=== PATIENT | male | born 1970 | race Caucasian/White ===

== ENCOUNTER 2020-03-01 08:48 | Outpatient (CLI) | payer BC, SELFPAY ==
--- NOTE | ~2020-03-01 | XR_ITS ---
XR shoulder RT min 2V DATE: 03/01/2020 09:06 INDICATION: Impingement syndrome. Shoulder pain. TECHNIQUE: 4 views COMPARISON: None FINDINGS: No fracture or dislocation, periosteal reaction or bone destruction or abnormal soft tissue calcification. Degenerative spurring of the thoracic spine is noted. IMPRESSION: No significant abnormality of the right shoulder Degenerative spurring of the thoracic spine Reviewed, dictated and finalized at location B.
--- NOTE | ~2020-03-01 | XR_ITS ---
XR shoulder LT min 2V DATE: 03/01/2020 09:06 INDICATION: Shoulder pain. Impingement syndrome. TECHNIQUE: 4 views COMPARISON: None FINDINGS: There is joint space narrowing and mild spurring of the left acromioclavicular joint. No fracture, dislocation, periosteal reaction or bone destruction. No abnormal soft tissue calcificat ion of the left shoulder. Degenerative spurring of the thoracic spine. IMPRESSION: Degenerative change at the left acromioclavicular joint Reviewed, dictated and finalized at location B.
== END 2020-03-01 08:49 | disposition home or self-care (01) ==
LOC: ANHIMG 08:53
PROVIDERS: PCP Family Medicine; Visit Provider Family Medicine
DX: M75.40 Impingement syndrome of unspecified shoulder (principal); M46.04 Spinal enthesopathy, thoracic region
CPT/HCPCS: 73030

== ENCOUNTER 2020-06-21 10:03 | Outpatient (CLI) | payer BC, SELFPAY ==
--- NOTE | 2020-06-21 11:00 | NEURO_ITS ---
Patient Number: [id number] Impression: # Complains of pain and numbness of upper extremities. # Bilateral ulnar neuropathy across the elbows, right more than left. # Evolving right Carpal Tunnel Syndrome. # Needle/EMG exam mildly neurogenic. # Clinical correlation recommended Nerve Conduction Studies Anti Sensory Summary Table Stim Site NR Peak (ms) P-T Amp (?V) Site1 Site2 Delta-P (ms) Dist (cm) Luis Antonio (m/s) Left Median Anti Sensory (2-3nd Digit) Wrist 3.3 42.4 Wrist 2-3nd Digit 3.3 14.0 42 Wrist 3.4 33.5 Wrist 2-3nd Digit 3.3 14.0 42 Right Median Anti Sensory (2-3nd Digit) Wrist 3.5 22.8 Wrist 2-3nd Digit 3.5 14.0 40 Wrist 3.4 20.4 Wrist 2-3nd Digit 3.5 14.0 40 Left Radial Anti Sensory (Base 1st Digit) Wrist 2.2 21.9 Wrist Base 1st Digit 2.2 0.0 Right Radial Anti Sensory (Base 1st Digit) Wrist 2.4 12.0 Wrist Base 1st Digit 2.4 0.0 Left Ulnar Anti Sensory (5th Digit) Wrist 3.1 14.1 Wrist 5th Digit 3.1 14.0 45 Right Ulnar Anti Sensory (5th Digit) Wrist 3.0 26.9 Wrist 5th Digit 3.0 14.0 47 Motor Summary Table Stim Site NR Onset (ms) O-P Amp (mV) Site1 Site2 Delta-0 (ms) Dist (cm) Luis Antonio (m/s) Left Median Motor (Abd Poll Brev) Wrist 3.9 3.6 Elbow Wrist 5.0 29.0 58 Elbow 8.9 1.9 Right Median Motor (Abd Poll Brev) Wrist 4.1 2.6 Elbow Wrist 5.4 31.0 57 Elbow 9.5 4.0 Left Ulnar Motor (Abd Dig Minimi) Wrist 3.0 5.9 A Elbow Wrist 6.3 31.0 49 A Elbow 9.3 4.3 B Elbow Wrist 4.0 26.0 65 B Elbow 7.0 5.2 Right Ulnar Motor (Abd Dig Minimi) Wrist 2.9 4.7 A Elbow Wrist 7.3 30.0 41 A Elbow 10.2 2.4 B Elbow Wrist 4.5 22.0 49 B Elbow 7.4 3.1 F Wave Studies NR F-Lat (ms) L-R F-Lat (ms) Left Median (Mrkrs) (Abd Poll Brev) 28.51 1.23 Right Median (Mrkrs) (Abd Poll Brev) 29.74 1.23 Left Ulnar (Mrkrs) (Abd Dig Min) 31.99 0.05 Right Ulnar (Mrkrs) (Abd Dig Min) 31.94 0.05 EMG Side Muscle Nerve Root Ins Act Fibs Amp Dur Recrt Comment Right 1stDorInt Ulnar C8-T1 Nml Nml Nml >12ms Nml Right Ext Indicis Radial (Post Int) C7-8 Nml Nml Nml Nml Nml Right Ext Digitorum Radial (Post Int) C7-8 Nml Nml Nml Nml Nml Right BrachioRad Radial C5-6 Nml Nml Nml Nml Nml Right PronatorTeres Median C6-7 Nml Nml Nml Nml Nml Right Abd Poll Brev Median C8-T1 Nml Nml Nml Nml Nml Left 1stDorInt Ulnar C8-T1 Nml Nml Nml >12ms Nml Left Ext Indicis Radial (Post Int) C7-8 Nml Nml Nml Nml Nml Left Ext Digitorum Radial (Post Int) C7-8 Nml Nml Nml Nml Nml Left BrachioRad Radial C5-6 Nml Nml Nml Nml Nml Left PronatorTeres Median C6-7 Nml Nml Nml Nml Nml Left Abd Poll Brev Median C8-T1 Nml Nml Nml Nml Nml Right Biceps Musculocut C5-6 Nml Nml Nml Nml Nml Right Triceps Radial C6-7-8 Nml Nml Nml Nml Nml Right Deltoid Axillary C5-6 Nml Nml Nml Nml Nml Right ABD Dig Min Ulnar C8-T1 Nml Nml Nml >12ms Nml Left ABD Dig Min Ulnar C8-T1 Nml Nml Nml >12ms Nml Left Biceps Musculocut C5-6 Nml Nml Nml Nml Nml Left Triceps Radial C6-7-8 Nml Nml Nml Nml Nml Left Deltoid Axillary C5-6 Nml Nml Nml Nml Nml MTDD
== END 2020-06-21 10:04 | disposition home or self-care (01) ==
PROVIDERS: PCP Family Medicine; Visit Provider Family Medicine
DX: G56.23 Lesion of ulnar nerve, bilateral upper limbs (principal); G56.01 Carpal tunnel syndrome, right upper limb
CPT/HCPCS: 95886; 95911

== ENCOUNTER 2020-09-27 01:36 | Outpatient (CLI) | payer BC, SELFPAY ==
[2020-09-27 18:17] LABS: SARS-CoV-2 RNA PCR Negative
== END 2020-09-27 01:37 | disposition home or self-care (01) ==
LOC: ANHCOVIDDT 01:36
PROVIDERS: PCP Family Medicine; Visit Provider Surgery Plastic and Reconstructive Surgery
DX: Z01.812 Encounter for preprocedural laboratory examination (principal); Z20.828 Contact with and (suspected) exposure to other viral communicable diseases
CPT/HCPCS: 87635; C9803; U0003

== ENCOUNTER 2020-09-27 08:43 | Outpatient (CLI) | payer BC, SELFPAY ==
--- NOTE | 2020-09-27 08:45 | ECG_ITS ---
Measurements Intervals [place] Rate: 85 P: 51 MA: 153 QRS: 44 QRSD: 74 T: 43 QT: 344 QTc: 410 Interpretive Statements SINUS RHYTHM DELAYED PRECORDIAL R/S TRANSITION BASELINE ARTIFACT- II, III, AVR, AVL, AVF BORDERLINE ECG Electronically Signed On 09-27-2020 9:15:14 CDT by Kem Hartman D.O.
[2020-09-27 09:31] LABS: Anion Gap 8 mmol/L (8-16); Blood Urea Nitrogen 12 mg/dL (9-20); Calcium 9.4 mg/dL (8.4-10.2); Carbon Dioxide 28 mmol/L (22-30); Chloride 103 mmol/L (98-107); Estimated Glomerular Filt Rate > 60; Glucose 130 mg/dL (75-110); Potassium 4.7 mmol/L (3.4-5.0); Sodium 139 mmol/L (137-145)
== END 2020-09-27 08:44 | disposition home or self-care (01) ==
LOC: ANHSURGERY 08:45
PROVIDERS: Anesthesiology; PCP Family Medicine; Visit Provider Surgery Plastic and Reconstructive Surgery
DX: Z01.818 Encounter for other preprocedural examination (principal); E11.9 Type 2 diabetes mellitus without complications; Z72.0 Tobacco use
CPT/HCPCS: 36415; 80048; 93005

== ENCOUNTER 2020-09-29 00:20 | Day surgery (SDC) | payer BC, SELFPAY ==
[2020-09-14 14:21] VITALS: BMI 32.5
--- NOTE | 2020-09-28 14:24 | WPDANESEPPF ---
Anes - Initial Pre Proc Eval Procedure: Operation Date: 09/29/20 13:30 Proposed Procedures p Right Carpal Tunnel Release, Right Cubital Tunnel Release - Terrence Souza MD Date/Time: 09/28/20 14:24 Surgeon: Terrence Souza MD Pre Op Diagnosis: Right Carpal & Cubital Tunnel Syndrome Patient Data Age: 50 Gender: M Height: 1.83 m Weight: 108.86 kg Allergies Allergy/AdvReac Type Severity Reaction Status Date / Time No Known Allergies Allergy Unknown Verified 09/29/20 11:31 Home Medications Medication Instructions Recorded Confirmed Type hydrocodone 5 mg-acetaminophen 325 1 tablet PO Q6H PRN #15 tablet 09/18/20 09/18/20 Rx mg tablet metformin 500 mg tablet,extended 1,000 mg PO DAILY #60 tablet 09/18/20 09/29/20 Rx release 24hr ondansetron HCl 4 mg tablet 4 mg PO Q6H PRN #30 tablet 09/18/20 Rx Patient hx anesthesia problems: none Family hx anesthesia problems: none PMFSH Past Medical History Medical History (Updated 09/28/20 @ 14:25 by Silverio Hawk MD) Carpal tunnel syndrome on both sides Diabetes Lumbago with sciatica, left side Mixed hyperlipidemia Obesity Shoulder impingement Tobacco abuse 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, without long-term current use of insulin Social History Social History Smoking packs per day: 0.5 Smoking cigarettes per day: 10.0 Years smoked: 30 Smoking pack-years: 15.00 Smoking status: Current every day smoker Tobacco type: cigarettes Second hand tobacco smoke exposure: No Alcohol intake: current Drinks per week: 12 Alcohol use details: maybe 12 beers a week Substance use: never Substance use type: does not use Living arrangements: with family Gender identity (if verbalized by the patient): Male Sexual Orientation (if Verbalized by the Patient): Straight or Heterosexual Spiritual care concerns: No Anes - Eval Final PreProcedure Day of Procedure 09/28/20 14:24 Patient weight: obese Heart: regular rate and rhythm Lungs: clear to auscultation and normal air movement Airway: Mallampati scale class II Neurological: alert and oriented Last oral intake: >/= 8 hours ASA classification: III Emergent: no Anesthetic plan: proceed Anesthesia type and monitoring: general LMA Informed Consent: The patient's anesthetic plan and its attendant risks and benefits were discussed with the patient/family/POA. Questions were solicited and answers provided to the satisfaction of the patient/family/POA.
[2020-09-29] VITALS (7 sets, daily range): BP systolic 108–135; BP diastolic 68–83; PULSE 68–80; RESP 10–16; TEMP 36.1–36.4; O2SAT 92–99
[2020-09-29 11:55] LABS: Glucose Point of Care 122 (65-105)
[2020-09-29] MEDS: LACTATED RINGERS 1,000 ML 30 ML IV CONT (11:57)
--- NOTE | 2020-09-29 13:07 | WPDHPUPDATE1 ---
History and Physical Update Update Date/Time: 09/29/20 13:07 History and Physical has been reviewed, including an updated exam of the patient. There are NO changes in the patient's condition. Risks, benefits, and alternatives have been discussed and questions answered. Patient agrees to proceed with procedure.
--- NOTE | 2020-09-29 13:21 | PM.PROC ---
Procedure Note - Detailed Date of procedure: 09/29/20 Pre-op diagnosis: Right Carpal & Cubital Tunnel Syndrome Post-op diagnosis: same Procedure performed: 1. Right OCTR 2. Left open cubital tunnel release Description of procedure: Patient was marked in the preoperative holding area with their verification. Taken to the operating room placed supine on operating room table. Anesthesia provided by anesthesiology and prepped and draped in standard sterile fashion. Surgical time-out was taken. 1% lidocaine and 0.25% Marcaine with epinephrine was used anesthetize locally. Esmarch was used to exsanguinate the arm and tourniquet inflated to 250 mmHg. Fifteen blade used to make an incision just ulnar to the palmaris longus tendon location. Dissection was continued down until the transverse carpal ligament was identified and this was completely released under direct visualization with no evidence of neurovascular or tendon injury. I closed with horizontal mattress 4-0 nylon. Just proximal to the cubital tunnel a 15 blade used to make an incision. Dissection was continued down to the ulnar nerve was identified and I followed proximally and distally making sure there was complete release. I protected any crossing nerves. There is no evidence of neurovascular or tendon injury. Tourniquet was released. I verified a strict hemostasis. Elbow was closed using 3-0 Monocryl followed by running subcuticular 4-0 Monocryl and tissue glue. Xeroform fluffs and a lightly applied Alfonso were used for final dressing. Anesthesia: GLMA Surgeon: Terrence Souza MD Estimated blood loss (mL): 5 Drains: No Packing: No Pathology: none sent Complications: No immediate complications Condition: stable Disposition: PACU
[2020-09-29] MEDS: LIDO 1%/EPINEPHRINE 1:100,000 20 ML VIAL 10 ML INFILTRATE (13:46)
[2020-09-29] MEDS: ceFAZolin 2 GM/D5W 50 ML 2 GM/50 ML BAG IVPB (13:46)
== END 2020-09-29 16:40 | disposition home or self-care (01) ==
PROVIDERS: PCP Family Medicine; Visit Provider Surgery Plastic and Reconstructive Surgery
PROC: (CPT 64721; principal; 2020-09-29 13:30)
DX: G56.01 Carpal tunnel syndrome, right upper limb (principal); G56.21 Lesion of ulnar nerve, right upper limb; E11.9 Type 2 diabetes mellitus without complications; E78.2 Mixed hyperlipidemia; Z79.84 Long term (current) use of oral hypoglycemic drugs; E66.9 Obesity, unspecified; Z68.32 Body mass index [BMI] 32.0-32.9, adult; F17.210 Nicotine dependence, cigarettes, uncomplicated
CPT/HCPCS: 64721; 64718; J0690; J1100; J1885; J2250; J2405; J2704; J3010; J7120

== ENCOUNTER 2020-10-17 02:43 | Outpatient (CLI) | payer BC, SELFPAY ==
[2020-10-17 19:47] LABS: SARS-CoV-2 RNA PCR Negative
== END 2020-10-17 02:44 | disposition home or self-care (01) ==
LOC: ANHCOVIDDT 02:43
PROVIDERS: PCP Family Medicine; Visit Provider Surgery Plastic and Reconstructive Surgery
DX: Z01.812 Encounter for preprocedural laboratory examination (principal); Z20.828 Contact with and (suspected) exposure to other viral communicable diseases
CPT/HCPCS: 87635; C9803; U0003

== ENCOUNTER 2020-10-20 04:25 | Day surgery (SDC) | payer BC, SELFPAY ==
[2020-10-11 12:21] VITALS: BMI 32.5
--- NOTE | 2020-10-20 07:55 | P.PNAN_ITS ---
Anes - Initial Pre Proc Eval Procedure: Operation Date: 10/20/20 09:00 Proposed Procedures p Left Carpal Tunnel Release, Left Cubital Tunnel Release - Terrence Souza MD Date/Time: 10/20/20 07:55 Surgeon: Terrence Souza MD Pre Op Diagnosis: Left Carpal & Cubutal Tunnel Syndrome Patient Data Age: 50 Gender: M Height: 1.83 m Weight: 109 kg Allergies Allergy/AdvReac Type Severity Reaction Status Date / Time No Known Allergies Allergy Unknown Verified 10/11/20 12:17 Home Medications Medication Instructions Recorded Confirmed Type hydrocodone 5 mg-acetaminophen 325 1 tablet PO Q6H PRN #15 tablet 09/18/20 10/11/20 Rx mg tablet metformin 1,000 mg PO QAM 10/11/20 10/11/20 History naproxen sodium [Aleve] 880 mg PO DAILY PRN 10/11/20 10/11/20 History Patient hx anesthesia problems: none Family hx anesthesia problems: none PMFSH Past Medical History Medical History Carpal tunnel syndrome on both sides Diabetes Lumbago with sciatica, left side Mixed hyperlipidemia Obesity Shoulder impingement Tobacco abuse 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, without long-term current use of insulin Social History Social History Smoking packs per day: 0.5 Smoking cigarettes per day: 10.0 Years smoked: 20 Smoking pack-years: 10.00 Smoking status: Former smoker Tobacco type: smokeless tobacco Smokeless tobacco user: chewing tobacco Second hand tobacco smoke exposure: No Smoking end date: 05/31/14 Additional smoking assessment comments: CURRENTLY USES CHEWING TOBACCO MULTIPLE TIMES/DAY Alcohol intake: current Drinks per week: 4 Substance use: never Substance use type: does not use Living arrangements: with family Gender identity (if verbalized by the patient): Male Spiritual care concerns: No Anes - Eval Final PreProcedure Day of Procedure 10/20/20 07:55 Patient weight: obese Heart: regular rate and rhythm Lungs: clear to auscultation and normal air movement Airway: Mallampati scale class II Neurological: alert and oriented Last oral intake: >/= 8 hours ASA classification: III Emergent: no Anesthetic plan: proceed Anesthesia type and monitoring: general GIVS and standard monitoring Informed Consent: The patient's anesthetic plan and its attendant risks and benefits were discussed with the patient/family/POA. Questions were solicited and answers provided to the satisfaction of the patient/family/POA.
[2020-10-20 08:00] VITALS: BP 132/81; PULSE 79; RESP 20; TEMP 35.6; O2SAT 97
[2020-10-20] MEDS: LACTATED RINGERS 1,000 ML 30 ML IV CONT ×2 (08:00→12:40)
[2020-10-20 08:11] LABS: Glucose Point of Care 158 (65-105)
--- NOTE | 2020-10-20 08:58 | WPDANESEPP ---
Anes - Eval Pre Procedure Procedure: Operation Date: 10/20/20 09:00 Proposed Procedures p Left Carpal Tunnel Release, Left Cubital Tunnel Release - Terrence Souza MD Date/Time: 10/20/20 08:58 Pre Op Diagnosis: Left Carpal & Cubutal Tunnel Syndrome Patient Data Age: 50 Gender: M Height: 1.83 m Weight: 109.6 kg Last Vital Signs Temp 35.6 C L 10/20/20 08:00 Pulse 79 10/20/20 08:00 Resp 20 10/20/20 08:00 BP 132/81 10/20/20 08:00 Pulse Ox 97 10/20/20 08:00 Allergies Allergy/AdvReac Type Severity Reaction Status Date / Time No Known Allergies Allergy Unknown Verified 10/20/20 08:29 Home Medications Medication Instructions Recorded Confirmed Type hydrocodone 5 mg-acetaminophen 325 1 tablet PO Q6H PRN #15 tablet 09/18/20 10/20/20 Rx mg tablet metformin 1,000 mg PO QAM 10/11/20 10/20/20 History naproxen sodium [Aleve] 880 mg PO DAILY PRN 10/11/20 10/20/20 History Laboratory Tests 10/20/20 08:06 POC Capillary Glucose 158 mg/dl H mg/dl (65-105) Patient hx anesthesia problems: none Family hx anesthesia problems: none PMFSH Past Medical History Medical History Carpal tunnel syndrome on both sides Diabetes Lumbago with sciatica, left side Mixed hyperlipidemia Obesity Shoulder impingement Tobacco abuse 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, without long-term current use of insulin Social History Social History Smoking packs per day: 0.5 Smoking cigarettes per day: 10.0 Years smoked: 20 Smoking pack-years: 10.00 Smoking status: Former smoker Tobacco type: smokeless tobacco Smokeless tobacco user: chewing tobacco Second hand tobacco smoke exposure: No Smoking end date: 05/31/14 Additional smoking assessment comments: CURRENTLY USES CHEWING TOBACCO MULTIPLE TIMES/DAY Alcohol intake: current Drinks per week: 4 Substance use: never Substance use type: does not use Living arrangements: with family Gender identity (if verbalized by the patient): Male Spiritual care concerns: No Exam Day of Procedure 10/20/20 08:58 Patient weight: obese
--- NOTE | 2020-10-20 10:09 | SUR.PREOP ---
0920-PT AWARE SURGEON DELAYS SELF 1-2HRS.
--- NOTE | 2020-10-20 10:41 | SUR.PREOP ---
1035-PT UPDATED THAT DR. BENITEZ IS FINISHING WITH PRIOR PT AND WHEN ROOM READY, WILL BE GOING TO OR.
--- NOTE | 2020-10-20 10:41 | WPDHPUPDATE1 ---
History and Physical Update Update Date/Time: 10/20/20 10:41 History and Physical has been reviewed, including an updated exam of the patient. There are NO changes in the patient's condition. Risks, benefits, and alternatives have been discussed and questions answered. Patient agrees to proceed with procedure.
--- NOTE | 2020-10-20 10:54 | PM.PROC ---
Procedure Note - Detailed Date of procedure: 10/20/20 Pre-op diagnosis: Left Carpal & Cubutal Tunnel Syndrome Post-op diagnosis: same Procedure performed: 1. Left open carpal tunnel release 2. Left open cubital tunnel release Description of procedure: He states his right hand continues to make significant improvement. He has symptoms on the left and he would like proceed. Again we went over the risks, benefits, alternatives. He understands this is unique and with unique risks and unique outcomes. All questions answered to his satisfaction and consent obtained. Patient was marked in the preoperative holding area with their verification. Taken to the operating room placed supine on operating room table. Anesthesia provided by anesthesiology and prepped and draped in standard sterile fashion. Surgical time-out was taken. 1% lidocaine and 0.25% Marcaine with epinephrine was used anesthetize locally. Esmarch was used to exsanguinate the arm and tourniquet inflated to 250 mmHg. Fifteen blade used to make an incision just ulnar to the palmaris longus tendon location. Dissection was continued down until the transverse carpal ligament was identified and this was completely released under direct visualization with no evidence of neurovascular or tendon injury. I closed with horizontal mattress 4-0 nylon. I proceeded to the cubital tunnel. Fifteen blade used to make an incision just proximal to the elbow. Dissection was continued down until the ulnar nerve was identified and released proximally and distally until completely released. I protected any crossing nerves. Released the tourniquet verified hemostasis. This was closed with 3-0 Monocryl followed by running subcuticular 4-0 Monocryl and tissue glue. Dressings were placed. Anesthesia: GLMA Surgeon: Terrence Souza MD Estimated blood loss (mL): 5 Drains: No Packing: No Pathology: none sent Complications: No immediate complications Condition: stable Disposition: PACU
[2020-10-20] MEDS: LIDO 1%/EPINEPHRINE 1:100,000 20 ML VIAL 10 ML INFILTRATE (11:26)
[2020-10-20] MEDS: ceFAZolin 2 GM/D5W 50 ML 2 GM/50 ML BAG IVPB (11:26)
[2020-10-20] MEDS: KETOROLAC 30 MG/ML VIAL (*BKC) IV PUSH (12:02)
--- NOTE | 2020-10-20 12:30 | SUR.OPER ---
EBL:10cc
[2020-10-20 12:40] VITALS: BP 119/71; PULSE 101; RESP 12; TEMP 36.1; O2SAT 98
[2020-10-20 12:55] VITALS: BP 115/72; PULSE 100; RESP 14; O2SAT 100
[2020-10-20 13:04] LABS: Glucose Point of Care 139 (65-105)
[2020-10-20 13:10] VITALS: BP 128/88; PULSE 97; RESP 14; O2SAT 92
[2020-10-20 13:15] VITALS: BP 136/69; PULSE 87; RESP 14
[2020-10-20 13:45] VITALS: BP 135/49; PULSE 86; RESP 14
== END 2020-10-20 13:50 | disposition home or self-care (01) ==
PROVIDERS: PCP Family Medicine; Visit Provider Surgery Plastic and Reconstructive Surgery
PROC: (CPT 64721; principal; 2020-10-20 09:00)
DX: G56.02 Carpal tunnel syndrome, left upper limb (principal); G56.22 Lesion of ulnar nerve, left upper limb; E11.9 Type 2 diabetes mellitus without complications; E78.2 Mixed hyperlipidemia; Z79.84 Long term (current) use of oral hypoglycemic drugs; E66.9 Obesity, unspecified; Z68.32 Body mass index [BMI] 32.0-32.9, adult; F17.220 Nicotine dependence, chewing tobacco, uncomplicated
CPT/HCPCS: 64721; 64718; J0690; J1100; J1885; J2250; J2405; J2704; J3010; J7120

== ENCOUNTER 2022-01-29 00:20 | Day surgery (SDC) | payer BC, SELFPAY ==
[2022-01-15 13:44] VITALS: BMI 34.4
[2022-01-29 07:17] VITALS: BP 135/80; PULSE 95; RESP 18; TEMP 36.6; O2SAT 98
[2022-01-29] MEDS: LACTATED RINGERS 1,000 ML 150 ML IV CONT (07:27)
[2022-01-29 07:29] LABS: Glucose Point of Care 183 mg/dl (65-105)
--- NOTE | 2022-01-29 08:05 | WPDANESEPPF ---
Anes - Initial Pre Proc Eval Procedure: Operation Date: 01/29/22 08:30 Proposed Procedures p Screening Colonoscopy - Diego Barahona MD Date/Time: 01/29/22 08:05 Surgeon: Diego Barahona MD Pre Op Diagnosis: neoplasm screening Patient Data Age: 51 Gender: M Height: 1.83 m Weight: 111.3 kg Last Vital Signs Temp 98 F 01/29/22 07:17 Pulse 95 01/29/22 07:17 Resp 18 01/29/22 07:17 BP 135/80 01/29/22 07:17 Pulse Ox 98 01/29/22 07:17 Allergies Allergy/AdvReac Type Severity Reaction Status Date / Time No Known Allergies Allergy Unknown Verified 01/15/22 13:46 Home Medications Medication Instructions Recorded Confirmed Type metformin 500 mg tablet,extended 1,000 mg PO QAM #180 tablet 08/22/21 01/15/22 Rx release 24hr lisinopril 5 mg tablet 5 mg PO DAILY #30 tablet 12/18/21 01/15/22 Rx multivitamin 1 tablet PO DAILY 12/18/21 01/15/22 History Laboratory Tests 01/29/22 07:23 POC Capillary Glucose 183 mg/dl H mg/dl (65-105) Patient hx anesthesia problems: none Family hx anesthesia problems: none Results Review: All pre-operative results and documents have been reviewed as part of the pre-operative evaluation. 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, without long-term current use of insulin Surgical History Surgical History History of carpal tunnel release Social History Social History Smoking packs per day: 0.5 Smoking cigarettes per day: 10.0 Years smoked: 30 Smoking pack-years: 15.00 Tobacco type: cigarettes and smokeless tobacco Smokeless tobacco user: chewing tobacco Second hand tobacco smoke exposure: No Additional smoking assessment comments: CURRENTLY USES CHEWING TOBACCO MULTIPLE TIMES/DAY Alcohol intake: current Drinks per week: 4 Alcohol use details: maybe 12 beers a week Substance use: never Substance use type: does not use Living arrangements: with family Additional living arrangements comments: 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 Gender identity (if verbalized by the patient): Male Sexual Orientation (if Verbalized by the Patient): Straight or Heterosexual Spiritual care concerns: No Agree to blood products: Yes Anes - Eval Final PreProcedure Day of Procedure 01/29/22 08:05 Patient weight: obese Heart: regular rate and rhythm Lungs: clear to auscultation Airway: Mallampati scale class II Neurological: alert and oriented Last oral intake: >/= 8 hours ASA classification: III Emergent: no Anesthetic plan: proceed Anesthesia type and monitoring: general GIVS and standard monitoring Results Review: All pre-operative results and documents have been reviewed as part of the pre-operative evaluation. Informed Consent: The patient's anesthetic plan and its attendant risks and benefits were discussed with the patient/family/POA. Questions were solicited and answers provided to the satisfaction of the patient/family/POA.
--- NOTE | 2022-01-29 08:22 | PM.HPGS ---
History of Present Illness History of Present Illness Consent: Risks, benefits, and alternatives have been discussed and questions answered. Patient agrees to proceed with procedure. Chief complaint: neoplasm screening Narrative: Justin Perez is a 51 year old male here for first screening colonoscopy Review of Systems Constitutional: Constitutional: Denies headache(s) and Denies weakness Eyes: Eyes: Denies blurry vision ENT: Reports Normal hearing present, Denies headache(s) and Denies neck pain Cardiovascular: Cardiovascular: Denies chest pain and Denies dyspnea Respiratory: Respiratory: Denies dyspnea Gastrointestinal: Gastrointestinal: Reports no additional gastrointestinal complaints Genitourinary: Genitourinary: Denies dysuria Musculoskeletal: Musculoskeletal: Denies neck pain Integumentary/Breasts: Skin/Breast: Denies dry skin Neurologic: Reports Normal hearing present, Denies headache(s) and Denies weakness Psychiatric: Psychiatric: Denies anxiety Endocrine: Endocrine: Denies change in body appearance Hematologic/Lymphatic: Hematologic/Lymphatic: Denies easy bleeding Allergic/Immunologic: Allergic/Immunologic: Denies urticaria PMFSH Past Medical History Medical History BMI 34.0-34.9,adult Carpal tunnel syndrome on both sides Diabetes Lumbago with sciatica, left side Mixed hyperlipidemia Obesity Pilonidal cyst Screen for colon cancer Screening for prostate cancer Shoulder impingement Tobacco abuse 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, without long-term current use of insulin Surgical History Surgical History History of carpal tunnel release Social History Social History Smoking packs per day: 0.5 Smoking cigarettes per day: 10.0 Years smoked: 30 Smoking pack-years: 15.00 Tobacco type: cigarettes and smokeless tobacco Smokeless tobacco user: chewing tobacco Second hand tobacco smoke exposure: No Additional smoking assessment comments: CURRENTLY USES CHEWING TOBACCO MULTIPLE TIMES/DAY Alcohol intake: current Drinks per week: 4 Alcohol use details: maybe 12 beers a week Substance use: never Substance use type: does not use Living arrangements: with family Additional living arrangements comments: 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 Gender identity (if verbalized by the patient): Male Sexual Orientation (if Verbalized by the Patient): Straight or Heterosexual Spiritual care concerns: No Agree to blood products: Yes Meds Home Medications and Allergies Home Medications Medication Instructions Recorded Confirmed Type metformin 500 mg tablet,extended 1,000 mg PO QAM #180 tablet 08/22/21 01/15/22 Rx release 24hr lisinopril 5 mg tablet 5 mg PO DAILY #30 tablet 12/18/21 01/15/22 Rx multivitamin 1 tablet PO DAILY 12/18/21 01/15/22 History Allergies Allergy/AdvReac Type Severity Reaction Status Date / Time No Known Allergies Allergy Unknown Verified 01/15/22 13:46 Vital Signs Vital Signs - 24 hr 01/29/22 07:17 Temperature 98 F Pulse Rate 95 Respiratory Rate 18 Blood Pressure 135/80 Pulse Oximetry 98 Exam Const: General: comfortable and no acute distress HENMT: General nose exam: Normal nares present Eyes: General: appearance normal, both eyes and all related structures Neck: Neck: no JVD Resp: Auscultation: clear to auscultation bilaterally Cardio: Rate: regular rate Rhythm: regular rhythm GI: Inspection: non-distended GI Palp: Yes Soft to palpation Skin: General skin exam: normal color Neuro: General: gait normal Speech: normal speech Extrem: General: normal to inspection Psych: Mental Status: mental status grossly normal Assessment and Plan Assessment and plan (1) Nc
[2022-01-29 08:50] VITALS: BP 107/62; PULSE 93; RESP 20; O2SAT 97
[2022-01-29 09:00] VITALS: BP 115/77; PULSE 93; RESP 24; O2SAT 96
[2022-01-29 09:10] VITALS: BP 123/76; PULSE 75; RESP 25; O2SAT 96
== END 2022-01-29 09:18 | disposition home or self-care (01) ==
PROVIDERS: PCP Family Medicine; Visit Provider Internal Medicine Gastroenterology
PROC: 0DJD8ZZ Inspection of Lower Intestinal Tract, Via Natural or Artificial Opening Endoscopic (ICD-10-PCS; CPT 45378; principal; 2022-01-29 08:30)
DX: Z12.11 Encounter for screening for malignant neoplasm of colon (principal); D12.0 Benign neoplasm of cecum; D12.4 Benign neoplasm of descending colon; K64.8 Other hemorrhoids; M54.42 Lumbago with sciatica, left side; E78.2 Mixed hyperlipidemia; E11.628 Type 2 diabetes mellitus with other skin complications; F17.210 Nicotine dependence, cigarettes, uncomplicated; Z79.84 Long term (current) use of oral hypoglycemic drugs; E66.9 Obesity, unspecified; Z68.33 Body mass index [BMI] 33.0-33.9, adult
CPT/HCPCS: 45380; 45385; 82948; 88305; J2704; J7120

== ENCOUNTER 2022-02-11 15:50 | Outpatient (CLI) | payer BC, SELFPAY ==
--- NOTE | ~2022-02-11 | XR_ITS ---
XR ribs BI 3V w CXR 2V DATE: 02/11/2022 16:21 INDICATION: Fall from ladder. Bilateral rib pain. TECHNIQUE: PA and lateral chest. 3 views of the right ribs. 3 views of the left ribs. COMPARISON: None FINDINGS: Normal heart size. No hilar or mediastinal enlargement. No pulmonary infiltrate or consolid ation, pleural effusion or pulmonary vascular congestion or pneumothorax. There is a slightly displaced lateral right fifth rib acute fracture. Diffuse idiopathic skeletal hyperostosis of the thoracic spine. IMPRESSION: Slightly displaced lateral right fifth rib recent fracture Reviewed, dictated and finalized at location A.
== END 2022-02-11 15:51 | disposition home or self-care (01) ==
PROVIDERS: PCP Family Medicine; Visit Provider Nurse Practitioner Family
DX: R07.81 Pleurodynia (principal); S22.31XA Fracture of one rib, right side, initial encounter for closed fracture; M48.14 Ankylosing hyperostosis [Forestier], thoracic region
CPT/HCPCS: 71046; 71110

== ENCOUNTER 2022-02-14 14:39 | Outpatient (CLI) | payer BC, SELFPAY ==
--- NOTE | ~2022-02-14 | XR_ITS ---
EXAMINATION: XR chest 2V 02/14/2022 14:57 INDICATION: Right anterior chest pain PROCEDURE: 2 view chest COMPARISON: 02/11/2022. FINDINGS: The lungs are clear. The cardiomediastinal silhouette is within normal limits. There are no pleural effusions. There is no pneumothorax suspected. IMPRESSION: 1: NO ACUTE CARDIOPULMONARY DISEASE. Reviewed, dictated and finalized at location B.
== END 2022-02-14 14:40 | disposition home or self-care (01) ==
LOC: ANHIMG 14:44
PROVIDERS: PCP Family Medicine; Visit Provider Nurse Practitioner Family
DX: S22.39XA Fracture of one rib, unspecified side, initial encounter for closed fracture (principal)
CPT/HCPCS: 71046